=== PATIENT | male | born 1965 | race African-American/Black ===

== ENCOUNTER 2017-12-05 03:56 | Inpatient (IN) | payer OTHER ==
[2017-12-05] VITALS (31 sets, daily range): BP systolic 141–175; BP diastolic 85–134
[~2017-12-05] VITALS: Ht 172.7 cm; Wt 85.3 kg
[2017-12-05] MEDS ORDERED: NITROGLYCERIN 0.4MG TABLET SL SL ONE ×2 (04:07→04:15)
[2017-12-05] MEDS ORDERED: NITROGLYCERIN 50MG PREMIX 250 ML IV ONE ×2 (04:08→04:30)
[2017-12-05] MEDS ORDERED: LIDOCAINE HCL 2% 5ML SYRINGE IV ONE (04:15)
[2017-12-05] MEDS ORDERED: FUROSEMIDE 100MG/10ML VIAL IVP ONE (04:15)
[2017-12-05] MEDS ORDERED: ONDANSETRON HCL 4MG/2ML VIAL ONE (04:23)
[2017-12-05 04:29] LABS: BASOPHILS % 0.4 % (0.0-2.0); EOSINOPHILS % 1.5 % (0.0-5.0); HEMATOCRIT. 29.9 % (42.0-52.0); HEMOGLOBIN. 9.4 g/dL (14.0-18.0); LYMPHOCYTES % 14.9 % (20.0-50.0); MEAN CORPUSCULAR HEMOGLOBIN 21.5 pg (28.0-32.0); MEAN CORPUSCULAR VOLUME 68.7 fL (80.0-94.0); MEAN PLATELET VOLUME 8.6 fl (7.4-10.4); MONOCYTES % 5.8 % (2.0-8.0); NEUTROPHILS % 77.4 % (40.0-76.0); PLATELET 305 x1000/uL (130-400); RED BLOOD CELL COUNT 4.35 mill/uL (4.7-6.1); RED CELL DISTRIBUTION WIDTH 20.1 % (11.6-14.6)
[2017-12-05 04:32] LABS: PLATELET ESTIMATE NORMAL
[2017-12-05 04:33] LABS: INR 1.1; PROTHROMBIN TIME 10.9 sec (9.4-11.6)
[2017-12-05 04:34] LABS: CHLORIDE 108 mEq/L (98-107)
[2017-12-05] MEDS ORDERED: CEFAZOLIN 2,000 MG in DEXT 5% WATER 100 ML IV SCH (05:00)
[2017-12-05] MEDS ORDERED: ONDANSETRON HCL 4MG/2ML VIAL IV ONE (05:00)
[2017-12-05] MEDS ORDERED: TETANUS, DIPHTHERIA, PERTUSSIS VAC/PF 0.5ML (>7YR OLD) IM ONE (05:00)
[2017-12-05] MEDS ORDERED: DIPHENHYDRAMINE 50MG/ML VIAL IV PRN (07:45)
[2017-12-05] MEDS ORDERED: ONDANSETRON HCL 4MG/2ML VIAL IV PRN (07:45)
[2017-12-05] MEDS ORDERED: ENOXAPARIN 40MG/0.4ML SYR SUBCUT SCH (07:45)
[2017-12-05] MEDS ORDERED: MAGNESIUM/ALUMINUM HYDROXIDE/SIMETHICONE 30ML UDC PO PRN (07:45)
[2017-12-05] MEDS ORDERED: DOCUSATE SODIUM 100MG CAPSULE PO PRN (07:45)
[2017-12-05] MEDS ORDERED: LORAZEPAM 0.5MG TABLET PO PRN (07:45)
[2017-12-05] MEDS ORDERED: CLONIDINE 0.1MG TABLET PO PRN ×2 (07:45→10:00)
[2017-12-05] MEDS ORDERED: NITROGLYCERIN 0.4MG TABLET SL SL PRN (07:45)
[2017-12-05] MEDS ORDERED: TRAMADOL 50MG TABLET PO PRN (07:45)
[2017-12-05] MEDS ORDERED: NA PHOS,M-B/NA PHOS,DI-BA ENEMA 118ML PR PRN (07:45)
[2017-12-05] MEDS ORDERED: ACETAMINOPHEN 325MG TABLET PO PRN (07:45)
[2017-12-05] MEDS ORDERED: ZOLPIDEM TARTRATE 5MG TABLET PO PRN (07:45)
[2017-12-05] MEDS ORDERED: IPRATROPIUM/ALBUTEROL 0.5-3(2.5)MG/3ML NEB INH PRN (07:45)
[2017-12-05] MEDS ORDERED: GUAIFENESIN 200MG/10ML SUGAR FREE UDC PO PRN (07:45)
[2017-12-05 08:37] LABS: T4 FREE 0.92 ng/dL (0.76-1.46)
[2017-12-05] MEDS ORDERED: MORPHINE SULFATE 4 MG/ML CPJ (NOT FOR IM USE) IV PRN (08:45)
[2017-12-05 08:55] LABS: FOLIC ACID (FOLATE) SERUM 13.8 ng/mL (>5.38)
[2017-12-05 09:29] LABS: ETHANOL BLOOD < 10 mg/dL
[2017-12-05] MEDS ORDERED: LISI-604 PO (09:29)
[2017-12-05] MEDS ORDERED: FURO-151 PO (09:29)
[2017-12-05] MEDS ORDERED: CARV25TA47 PO (09:29)
[2017-12-05] MEDS ORDERED: METF500T4 PO (09:29)
[2017-12-05] MEDS ORDERED: ASPI-1159 PO (09:29)
[2017-12-05 09:32] LABS: HDL CHOLESTEROL 48 mg/dL (40-59); LDL CHOLESTEROL 100 mg/dL (5-100)
[2017-12-05] MEDS ORDERED: HYDRALAZINE 20MG/ML VIAL IV PRN (09:45)
[2017-12-05] MEDS: FUROSEMIDE 40MG/4ML VIAL IVP SCH ×2 (10:16→20:54)
[2017-12-05] MEDS: FAMOTIDINE 20MG/2ML VIAL IV SCH ×2 (10:16→20:54)
[2017-12-05] MEDS: METOPROLOL TARTRATE 25MG TABLET PO SCH ×2 (10:17→20:55)
[2017-12-05] MEDS: LISINOPRIL 20MG TABLET PO SCH ×2 (10:17→20:55)
[2017-12-05] MEDS: SPIRONOLACTONE 25MG TABLET PO SCH ×2 (10:17→20:54)
[2017-12-05] MEDS: HYDRALAZINE HCL 50MG TABLET PO SCH ×3 (10:39→21:01)
[2017-12-05] MEDS: ENOXAPARIN 30MG/0.3ML SYR SUBCUT SCH ×2 (10:39→20:55)
[2017-12-05 11:21] LABS: *AMPHETAMINES SCREEN URINE NEGATIVE (NEGATIVE); *BARBITURATES SCREEN URINE NEGATIVE (NEGATIVE); *BENZODIAZEPINES SCREEN URINE NEGATIVE (NEGATIVE); *COCAINE SCREEN URINE NEGATIVE (NEGATIVE); CANNABINOID URINE SCREEN NEGATIVE (NEGATIVE); METHADONE URINE SCREEN NEGATIVE (NEGATIVE); OPIATES URINE SCREEN PRESUMTIVE POSITIVE (NEGATIVE); PHENCYCLIDINE URINE SCREEN NEGATIVE (NEGATIVE)
[2017-12-05] MEDS ORDERED: CEFAZOLIN 1000MG PREMIX 50 ML IV SCH (14:00)
[2017-12-05] MEDS: CEFAZOLIN 1000MG PREMIX 50 ML IV SCH ×2 (14:12→21:03)
[2017-12-05] MEDS ORDERED: DEXTROSE 50% WATER 50ML SYRINGE IV PRN (16:00)
[2017-12-05 16:05] LABS: CREATINE KINASE MB FRACTION 3.6 ng/mL (0.5-3.6)
[2017-12-05] MEDS: BLOOD SUGAR DIAGNOSTIC STRIP TEST SCH ×2 (17:05→20:05)
[2017-12-05] MEDS: INSULIN LISPRO 100 UNITS/ML SUBCUT SCH ×2 (17:42→21:02)
[2017-12-06] VITALS (38 sets, daily range): BP systolic 123–185; BP diastolic 63–118
[2017-12-06] MEDS: HYDRALAZINE HCL 50MG TABLET PO SCH (05:11)
[2017-12-06] MEDS: CEFAZOLIN 1000MG PREMIX 50 ML IV SCH ×3 (05:11→20:35)
[2017-12-06] MEDS: BLOOD SUGAR DIAGNOSTIC STRIP TEST SCH ×4 (05:12→20:07)
[2017-12-06 05:52] LABS: BASOPHILS % 0.4 % (0.0-2.0); EOSINOPHILS % 1.1 % (0.0-5.0); HEMOGLOBIN. 8.1 g/dL (14.0-18.0); LYMPHOCYTES % 19.2 % (20.0-50.0); MEAN CORPUSCULAR HEMOGLOBIN 21.8 pg (28.0-32.0); MEAN CORPUSCULAR VOLUME 67.3 fL (80.0-94.0); MEAN PLATELET VOLUME 9.4 fl (7.4-10.4); MONOCYTES % 9.5 % (2.0-8.0); NEUTROPHILS % 69.8 % (40.0-76.0); PLATELET 236 x1000/uL (130-400); RED BLOOD CELL COUNT 3.72 mill/uL (4.7-6.1); RED CELL DISTRIBUTION WIDTH 20.4 % (11.6-14.6)
[2017-12-06 06:00] LABS: CHLORIDE 105 mEq/L (98-107)
[2017-12-06 06:08] LABS: HDL CHOLESTEROL 40 mg/dL (40-59); LDL CHOLESTEROL 80 mg/dL (5-100)
[2017-12-06] MEDS: INSULIN LISPRO 100 UNITS/ML SUBCUT SCH ×4 (07:48→20:33)
[2017-12-06] MEDS: ENOXAPARIN 30MG/0.3ML SYR SUBCUT SCH ×2 (09:00→20:32)
[2017-12-06] MEDS: SPIRONOLACTONE 25MG TABLET PO SCH ×2 (09:13→20:35)
[2017-12-06] MEDS: FAMOTIDINE 20MG/2ML VIAL IV SCH (09:13)
[2017-12-06] MEDS: FUROSEMIDE 40MG/4ML VIAL IVP SCH ×2 (09:13→20:32)
[2017-12-06] MEDS: LISINOPRIL 20MG TABLET PO SCH ×2 (09:14→20:32)
[2017-12-06] MEDS: METOPROLOL TARTRATE 25MG TABLET PO SCH (09:14)
[2017-12-06] MEDS: HYDRALAZINE HCL 100MG TABLET PO SCH ×2 (13:47→20:32)
[2017-12-06] MEDS ORDERED: FAMOTIDINE 20MG TABLET PO SCH (21:00)
[2017-12-06] MEDS ORDERED: CARVEDILOL 6.25 MG TABLET PO SCH (21:00)
== END 2017-12-06 21:10 | disposition short-term general hospital (02) | DRG 562 ==
LOC: ER 03:56 → CVICU 05:02 → ENRESERV 07:53 → CVICU 09:26
PROVIDERS: ADMIT Internal Medicine; ATTEND Internal Medicine
PROC: 0SSFXZZ Reposition Right Ankle Joint, External Approach (ICD-10-PCS; principal; 2017-12-05)
PROC: 5A09357 Assistance with Respiratory Ventilation, Less than 24 Consecutive Hours, Continuous Positive Airway Pressure (ICD-10-PCS; 2017-12-05)
DX: S82.891B Other fracture of right lower leg, initial encounter for open fracture type I or II (principal); E43 Unspecified severe protein-calorie malnutrition; J96.00 Acute respiratory failure, unspecified whether with hypoxia or hypercapnia; N17.0 Acute kidney failure with tubular necrosis; I50.43 Acute on chronic combined systolic (congestive) and diastolic (congestive) heart failure; I13.0 Hypertensive heart and chronic kidney disease with heart failure and stage 1 through stage 4 chronic kidney disease, or unspecified chronic kidney disease; I42.9 Cardiomyopathy, unspecified; D50.9 Iron deficiency anemia, unspecified; E78.00 Pure hypercholesterolemia, unspecified; E78.5 Hyperlipidemia, unspecified; E11.65 Type 2 diabetes mellitus with hyperglycemia; L97.509 Non-pressure chronic ulcer of other part of unspecified foot with unspecified severity; N18.9 Chronic kidney disease, unspecified; E11.621 Type 2 diabetes mellitus with foot ulcer; E11.22 Type 2 diabetes mellitus with diabetic chronic kidney disease; W18.39XA Other fall on same level, initial encounter; Z60.2 Problems related to living alone; Z79.899 Other long term (current) drug therapy; Z79.82 Long term (current) use of aspirin; Y93.89 Activity, other specified; Y92.89 Other specified places as the place of occurrence of the external cause; Y99.8 Other external cause status; Z68.28 Body mass index [BMI] 28.0-28.9, adult
CPT/HCPCS: 36415; 71045; 73610; 80053; 80061; 80305; 82550; 82553; 82607; 82746; 82962; 83036; 83540; 83550; 83735; 83880; 84439; 84443; 84484; 85025; 85379; 85610; 90715; 93005; 93306; 93970; 96374; 96375; 99291; G0482; J0690; J1650; J1815; J1940; J2405; J3490; J7050; J7060